=== PATIENT | female | born 1965 | race Caucasian/White ===

== ENCOUNTER 2017-10-22 22:39 | Emergency (ER) | payer OTHER ==
[~2017-10-22] VITALS: Ht 165.1 cm; Wt 103.0 kg
[2017-10-22 22:56] VITALS: Ht 165.1 cm; Wt 103.0 kg
[2017-10-22 23:36] LABS: PLATELET COUNT 297 x10^3mcL (130-400)
[2017-10-22 23:57] LABS: CARBON DIOXIDE 24.9 mmol/L (21-32); CHLORIDE SERUM 103 mmol/L (98-107); GFR1 > 60 mL/min; GLUCOSE SERUM 98 mg/dL (74-106); POTASSIUM SERUM 3.9 mmol/L (3.5-5.1); SODIUM SERUM 140 mmol/L (136-145)
[2017-10-23 00:02] LABS: ALKALINE PHOSPHATASE 111 U/L (46-116); ALT/SGPT 25 U/L (14-59); AST/SGOT 17 U/L (15-37); BILIRUBIN TOTAL 0.4 mg/dL (0.20-1.00); CHOLESTEROL 181 mg/dL (<200); HDL CHOLESTEROL 49 mg/dL (40-60); PHOSPHOROUS 3.5 mg/dL (2.5-4.9); TOTAL PROTEIN, SERUM 8.2 g/dL (6.4-8.2); URIC ACID 5.5 mg/dL (2.6-6.0)
[2017-10-23 00:29] VITALS: BP 136/91
== END 2017-10-23 01:15 | disposition home or self-care (01) ==
LOC: ED 22:39
PROVIDERS: Emergency Medicine
DX: R42 Dizziness and giddiness (principal)
CPT/HCPCS: 36415

== ENCOUNTER 2017-11-06 09:39 | Emergency (ER) | payer OTHER ==
[~2017-11-06] VITALS: Ht 165.1 cm; Wt 103.9 kg
[2017-11-06 09:52] VITALS: Ht 165.1 cm; Wt 103.9 kg
[2017-11-06 10:56] LABS: BASOPHIL % 0.7 % (0-2); PLATELET COUNT 244 x10^3mcL (130-400); RED CELL DISTRIBUTION WIDTH 13.4 % (11.5-14.5)
[2017-11-06 11:13] LABS: CALCIUM 9.2 mg/dL (8.5-10.1); CARBON DIOXIDE 25.8 mmol/L (21-32); CHLORIDE SERUM 103 mmol/L (98-107); CREATININE SERUM 0.9 mg/dL (0.6-1.0); GFR1 > 60 mL/min; GLUCOSE SERUM 117 mg/dL (74-106); POTASSIUM SERUM 3.5 mmol/L (3.5-5.1); SODIUM SERUM 139 mmol/L (136-145)
[2017-11-06 11:30] VITALS: BP 153/96
== END 2017-11-06 11:30 | disposition home or self-care (01) ==
LOC: ED 09:39
PROVIDERS: Emergency Medicine Emergency Medical Services
DX: M79.1 Myalgia (principal); R42 Dizziness and giddiness; F41.9 Anxiety disorder, unspecified; R50.9 Fever, unspecified; R53.1 Weakness
CPT/HCPCS: 36415; 85378